=== PATIENT | female | born 1975 | race Caucasian/White ===

== ENCOUNTER 2023-08-19 10:27 | Day surgery (SDC) | payer OTHER ==
[2023-08-13 15:38] LABS: ALBUMIN 3.1 G/DL (3.4-5.0); ALBUMIN/GLOBULIN RATIO 0.7 (1.1-1.5); ALKALINE PHOSPHATASE 120 IU/L (46-116); BLOOD UREA NITROGEN 15 MG/DL (7-18); BUN/CREATININE RATIO 15.5 (10.0-20.0); CALCIUM 8.8 MG/DL (8.5-10.1); CHLORIDE 105 MMOL/L (99-107); CREATININE 0.97 MG/DL (0.40-0.90); PRE OP ALT 22 U/L (30-65); PRE OP ANION GAP 7 (8-16); PRE OP AST 18 U/L (10-37); PRE OP BILIRUB, TOTAL 0.2 MG/DL (0.0-1.0); PRE OP GLUCOSE 95 MG/DL (70-104); PRE OP POTASSIUM 4.1 MMOL/L (3.4-5.1); PRE OP SODIUM 141 MMOL/L (135-145); TOTAL CARBON DIOXIDE 28.6 MMOL/L (24-32); TOTAL PROTEIN 7.7 G/DL (6.4-8.2); eGFR 61 ML/MIN
[2023-08-13 15:39] LABS: BASOPHILS # (AUTO) 0.1 X10'3 (0-0.2); BASOPHILS % (AUTO) 1.1 % (0-1); EOSINOPHILS # (AUTO) 0.2 X10'3 (0-0.9); EOSINOPHILS % (AUTO) 2.3 % (0-6); LYMPHOCYTES # (AUTO) 2.3 X10'3 (1.1-4.8); LYMPHOCYTES % (AUTO) 29.4 % (21-51); MEAN CORPUSCULAR HEMOGLOBIN 23.5 PG (27.0-31.0); MEAN CORPUSCULAR HGB CONC 31.8 g/dL (33.0-36.5); MEAN CORPUSCULAR VOLUME 73.8 FL (78-98); MEAN PLATELET VOLUME 7.5 FL (7.4-10.4); MONOCYTES # (AUTO) 0.7 X10'3 (0-0.9); MONOCYTES % (AUTO) 8.4 % (2-12); NEUTROPHILS # (AUTO) 4.5 X10'3 (1.8-7.7); NEUTROPHILS % (AUTO) 58.8 % (42-75); PRE OP HEMATOCRIT 34.9 % (35.0-45.0); PRE OP HEMOGLOBIN 11.1 g/dL (12.0-16.0); PRE OP PLATELET COUNT 509 X10'3 (140-440); PRE OP WHITE BLOOD COUNT 7.7 10'3 (4.8-10.8); RED BLOOD COUNT 4.73 X10'6 (4.20-5.60); RED CELL DISTRIBUTION WIDTH 18.5 % (11.5-14.5)
[~2023-08-19] VITALS: Ht 170.2 cm; Wt 124.0 kg
[2023-08-19] VITALS (18 sets, daily range): BP systolic 124–191; BP diastolic 82–104; PULSE 74–88; RESP 9–18; TEMP 98.1; O2SAT 87–97
[2023-08-19] MEDS: cefazolin 2gm/D5W 100mL 100 ML IV ONE (05:30)
[~2023-08-19 10:27] MED LIST: ASPI-144 PO; HYDR25TA5 PO; OMEP20TA23 PO; PROM25TA14 PO; RIZA-5 PO; VERA40TA5 PO
[2023-08-19] MEDS: ringers solution, lacted 1,000 ML IV SCH (11:05)
[2023-08-19] MEDS: famotidine 20mg tablet PO ONE (11:05)
[2023-08-19 11:33] LABS: BILIRUBIN,URINE NEGATIVE (Neg); CLARITY,URINE SLIGHTLY CLOUDY (Clear); COLOR,URINE YELLOW (Yellow); GLUCOSE, URINE NEGATIVE (Neg); KETONES,URINE TRACE mg/dl (Neg); LEUKOCYTE ESTERASE ,URINE TRACE (Neg); NITRITES, URINE NEGATIVE (Neg); OCCULT BLOOD,URINE TRACE-INTACT (Neg); PROTEIN,URINE NEGATIVE (Neg); UROBILINOGEN,URINE 0.2 E.U/dL (0.2-1.0)
[2023-08-19 11:38] LABS: UA COLLECTION TYPE NON-SPECIFIED
[2023-08-19 11:39] LABS: MUCUS STRANDS MANY /LPF (Neg); SQUAMOUS EPITHELIAL CELL,UR MANY /LPF (FEW)
[2023-08-19 11:40] LABS: BACTERIA,URINE 2+ /HPF (Neg); TRANSITIONAL EPI CELLS,URINE FEW /HPF
[2023-08-19] MEDS ORDERED: bacitracin 15gm ointment TP ONE (12:35)
[2023-08-19] MEDS ORDERED: BUPIVAcaine/PF 2.5mg/ml (0.25%) 10ml vial ONE (12:35)
[2023-08-19] MEDS ORDERED: sevoflurane 250ml liquid IH ONE (13:45)
[2023-08-19] MEDS ORDERED: fentaNYL/PF 50MCG/1 ML 2ML syringe ONE (13:59)
[2023-08-19] MEDS ORDERED: dexamethasone sod phosphate 4mg/ml inj. ONE (14:18)
[2023-08-19] MEDS ORDERED: LIDOcaine 1%/PF 5ML 10 MG/ML VIAL ONE (14:18)
[2023-08-19] MEDS ORDERED: ROPIVAcaine 0.5% (5mg/ml) 30ml vial ONE ×2 (14:18)
[2023-08-19] MEDS ORDERED: meperidine/PF 25mg/ml syringe IV PRN (14:50)
[2023-08-19] MEDS ORDERED: ringers solution, lacted 1,000 ML IV SCH (14:50)
[2023-08-19] MEDS ORDERED: ondansetron/PF 4mg/2ml inj IV PRN (14:50)
[2023-08-19] MEDS ORDERED: labetalol 20mg/4ml (5mg/ml) syringe IV PRN (14:50)
[2023-08-19] MEDS ORDERED: morphine 4 MG/ML inj SYRINge IV PRN (14:50)
[2023-08-19] MEDS ORDERED: proMETHazine 25mg rectal suppository RC PRN (14:50)
[2023-08-19] MEDS ORDERED: propofol inj 20 ML IV ONE ×3 (15:13)
[2023-08-19] MEDS ORDERED: ondansetron/PF 4mg/2ml inj ONE (15:13)
[2023-08-19] MEDS: BUPIVAcaine/PF 2.5mg/ml (0.25%) 10ml vial IJ ONE (16:35)
[2023-08-19] MEDS: acetaminophen 1,000mg/100ml IV 100 ML IV ONE (17:10)
[2023-08-19] MEDS: meperidine/PF 25mg/ml syringe IV PRN (17:56)
[2023-08-19] MEDS: proCHLORperazine 10 MG/2 ml inj IV PRN (18:04)
== END 2023-08-19 19:12 | disposition home or self-care (01) ==
LOC: PAS 10:27
PROVIDERS: ATTEND Podiatrist Foot & Ankle Surgery
DX: S93.431A Sprain of tibiofibular ligament of right ankle, initial encounter (principal); T84.84XA Pain due to internal orthopedic prosthetic devices, implants and grafts, initial encounter; G89.18 Other acute postprocedural pain; M25.371 Other instability, right ankle; I10 Essential (primary) hypertension; E66.9 Obesity, unspecified; K21.9 Gastro-esophageal reflux disease without esophagitis; G43.909 Migraine, unspecified, not intractable, without status migrainosus; Z87.891 Personal history of nicotine dependence; Z79.899 Other long term (current) drug therapy; Z90.89 Acquired absence of other organs; Z98.890 Other specified postprocedural states; Z68.41 Body mass index [BMI] 40.0-44.9, adult; Z88.5 Allergy status to narcotic agent; Z88.8 Allergy status to other drugs, medicaments and biological substances; X58.XXXA Exposure to other specified factors, initial encounter; Y79.2 Prosthetic and other implants, materials and accessory orthopedic devices associated with adverse incidents; Y93.89 Activity, other specified; Y92.89 Other specified places as the place of occurrence of the external cause; Y99.8 Other external cause status
CPT/HCPCS: 20680; 27695; 27829; 29898; 36415; 64445; 73600; 80053; 81001; 82948; 85025; 93005; A6222; C1713; J0131; J0690; J0780; J1100; J2175; J2405; J2704; J2795; J3010; J3490; J7120; Z7506; Z7508; Z7512; 76000; A4215; A4618; A6449; A7000